=== PATIENT | male | born 1970 | race Caucasian/White ===

== ENCOUNTER → 2018-04-13 13:58 | Outpatient (CLI) | payer MEDICAID, SELFPAY ==
[2018-04-13 14:01] LABS: Adenovirus F 40/41, stool Not Detected (NotDetected); Astrovirus Not Detected (NotDetected); Campylobacter Not Detected (NotDetected); Clostridium Difficile A/B, PCR Not Detected (NotDetected); Cryptosporidium Not Detected (NotDetected); Cyclospora Cayetanesis Not Detected (NotDetected); Entamoeba histolytica Not Detected (NotDetected); Enteroaggregative E coli Not Detected (NotDetected); Enteropathogenic E coli Not Detected (NotDetected); Enterotoxigenic E coli Not Detected (NotDetected); Giardia lamblia Not Detected (NotDetected); Norovirus Not Detected (NotDetected); Plesimonas Shigalloides, PCR Not Detected (NotDetected); Rotavirus A Not Detected (NotDetected); Salmonella, PCR Not Detected (NotDetected); Sapovirus Not Detected (NotDetected); Shiga-like toxin E coli Not Detected (NotDetected); Shigella Enterovasive E coli Not Detected (NotDetected); Vibrio Cholerae Not Detected (NotDetected); Vibrio, PCR Not Detected (NotDetected); Yersinia Entercolitica, PCR Not Detected (NotDetected)
== END ==
PROVIDERS: Visit Provider Nurse Practitioner Family
DX: R19.7 Diarrhea, unspecified (principal)
CPT/HCPCS: 87507

== ENCOUNTER → 2018-05-11 07:41 | Outpatient (CLI) | payer MEDICAID, SELFPAY ==
--- NOTE | 2018-05-11 07:44 | US_ITS ---
US abdomen limited History:Right upper quadrant pain Ordering Physician:Kayleen Kong Patient Age: 47 years Comparison:None Findings:There is limited technically due to patient body habitus. Pancreas:Poorly demonstrated Liver:There is diffuse increased echogenicity of the liver consistent with hepatic steatosis. Right Kidney:Unremarkable. Normal size and echogenicity. No hydronephrosis Gallbladder:No obvious stones. Common bile duct is normal at 5 mm. No pericholecystic fluid. There is some layering sludge in the gallbladder. Impression: Limited exam, layering sludge in the gallbladder. No shadowing stones Fatty liver
== END ==
PROVIDERS: PCP Nurse Practitioner Family; Visit Provider Nurse Practitioner Family
DX: R10.11 Right upper quadrant pain (principal)
CPT/HCPCS: 76705

== ENCOUNTER → 2018-07-24 17:37 | Outpatient (CLI) | payer MEDICAID, SELFPAY ==
[2018-07-28 18:06] LABS: Specimen Type Comment: (.)
== END ==
PROVIDERS: Visit Provider Urology
DX: N20.0 Calculus of kidney (principal)
CPT/HCPCS: 82370

== ENCOUNTER 2018-09-21 09:30 | Outpatient (RCR) | payer MEDICAID, SELFPAY ==
--- NOTE | 2018-08-20 09:49 | HMH.RHREAS ---
Rehab Reassessment Rehab OP Re-assessment Start: 08/20/18 08:47 Freq: Status: Active Protocol: Document 08/20/18 08:47 RMSTEPHANEL (Rec: 08/20/18 09:49 [email or web address] [id number]) Electronically Signed By Pooja David OT 08/20/18 08:47 Rehab Re-assessment Subjective Subjective I am still having pain with it. Objective Objective Notes Pt continues to be seen twice a week in order to address left shoulder deficits. Pt engages in AROM/AAROM/ Strengthening exercises at left shoulder. Pt also receives modalities such as e- stim and ice to decrease pain/ inflammation. Assessment Progress Assessment Slower Than Expected Assessment Notes Pt does demonstrates some improvement in motion and strength since initial evaluation. However, progress has been slow. Pt continues to complain of pain daily at the shoulder and increased soreness since beginning therapy. Pt feels he is 50% better since beginning therapy . Today pt reports his pain as a 3/10. Current AROM at L shoulder Flex: 132 degrees Abd: 155 degrees ER: 56 degrees IR: 40 degrees Current MMT L shoulder Flex: 4 Abd: 4 ER: 4 IR: 4 Patient goals met For now, pt has not met any STG or LTG Goals Not Met STG and LTG Revised Goals AROM L Shoulder Goals Flex: 165 degrees Abd: 170 degrees ER: 65 degrees IR: 65 degrees MMT Goals L shoulder Flex: 5 Abd: 5 ER: 5 IR: 5 Pain: 0/10 Plan Plan Continue with OT plan of care at this time.
== END 2018-09-21 09:35 | disposition home or self-care (01) ==
LOC: OT 09:30
PROVIDERS: Visit Provider Orthopaedic Surgery
DX: M25.512 Pain in left shoulder (principal)
CPT/HCPCS: 97014; 97110; 97164; 97166; G0283

== ENCOUNTER → 2019-01-15 13:15 | Outpatient (CLI) | payer OTHER, SELFPAY ==
--- NOTE | 2019-01-15 13:16 | CT_ITS ---
PROCEDURE: CT ABDOMEN PELVIS WO CON CLINICAL INDICATION: kidney stone Right flank pain COMPARISON: ABDPEL CT abdomen pelvis wo con from 07/23/2018 TECHNIQUE: Axial images obtained with sagittal and coronal reformats. All CT scans at the facility use one or more dose reduction, viz: automated exposure control, ma/kV adjustment per patient size (including targeted exams where dose is matched to indication, i.e. head), or iterative reconstruction technique. FINDINGS: LOWER THORAX: No acute finding ABDOMEN & PELVIS: The liver, spleen, adrenal glands, pancreas, and gallbladder have an unremarkable appearance. Hepatic steatosis. There is a 4 mm nonobstructing stone in the mid polar region of the right kidney and a 3 mm stone in the lower pole of the right kidney. No ureteral calculi. No hydronephrosis. Unremarkable appendix. There is diverticulosis of the descending colon but no evidence of diverticulitis. No intestinal obstruction or free air. There is a small umbilical hernia which contains fat. There is dense calcification of the vas as a deferens. Urinary bladder has an unremarkable appearance. No acute bony anomalies. IMPRESSION: 1. Right nephrolithiasis. No ureteral calculi. No hydronephrosis 2. Fatty liver. 3. Small umbilical hernia containing fat Dictated by: Tano Frye MD 01/16/2019 06:33 Electronically signed by Tano Frye MD in [place] 01/16/2019 06:33
== END ==
PROVIDERS: PCP Nurse Practitioner Family; Visit Provider Urology
DX: N20.0 Calculus of kidney (principal)
CPT/HCPCS: 74176

== ENCOUNTER 2019-10-29 13:01 | Emergency (ER) | payer OTHER, SELFPAY ==
[2019-10-29 13:27] VITALS: BP 157/78; PULSE 56; RESP 14; TEMP 36.9; O2SAT 97; BMI 45.5
--- NOTE | 2019-10-29 13:30 | HMH.EDUTC ---
[facility] [place] Clinical Impression: Abdominal discomfort Disposition: Still a Patient Condition on Discharge: Good Referrals: Kayleen Kong APRN [Primary Care Provider] - Time of Disposition: 13:45 Medical Decision Making - Trey Inquiry Pt receiving controlled substance: No Trey was queried for this patient: No Vital Signs: 10/29/19 13:27 Temperature 98.4 F Temperature Source Oral Pulse Rate [Right Brachial] 56 L Respiratory Rate 14 Blood Pressure [Right Arm] 157/78 H Blood Pressure Mean [Right Arm] 104 Blood Pressure Source [Right Arm] Automatic Cuff Blood Pressure Position [Right Arm] Sitting 02 Sat by Pulse Oximetry 97 Oxygen Delivery Method Room Air Medical Decision Narrative: Discussed symptoms with patient and recommended transfer to ED for further testing and evaluation due to symptoms and swelling in abdomen Called ED spoke with Nikki KHALIL and patient moved to ER room 9 [facility] [place] - General Stated complaint: herina pain Time Seen by Provider: 10/29/19 13:31 Mode of Arrival: Ambulatory Source of Information: Patient Limitations: No Limitations Description of Symptoms (Recalled from Triage Doc. by RN): PATIENT WAS WRESTLING WITH HIS SON A FEW DAYS AGO WHEN HE FELT SOMETHING RIP IN HIS ABDOMEN. SINCE THEN HE HAS BEEN HAVING INCREASED PAIN AND DIARRHEA, ESPECIALLY AFTER HE EATS HEENT Symptoms (Recalled from RN notes): No Resp Symptoms (Recalled from RN notes): No Skin Symptoms (Recalled from RN notes): No MS Symptoms (Recalled from RN notes): No Functional Status (Recalled from RN notes): WNL - History of Present Illness Provider Complaint: Patient states that he has had an umbilical hernia that normally he is able to push back in States that a couple days ago he was wrestling with his child when he felt a tearing sensation in his umbilical area and the hernia popped out and looked a little bluish and had extreme burning like pain in his mid abdomnen around his umbilical area States that ever since he has been having swelling in his right abdomen area and pain/burning in his mid abdominal area after he eats and has been unable to eat States that also he is concerned because now he is also having diarrhea and unable to get the hernia to push back in States that he was at work earlier and started having discomfort and they told him he needed to come in and get checked - Related Data Home Medications Medication Instructions Recorded Confirmed Sitagliptin Phos/Metformin HCl 1 each PO DAILY 12/19/17 04/24/19 [Janumet Xr 50-1,000 mg Tablet] Atorvastatin Calcium [Lipitor 20mg 20 mg PO HS 01/12/19 04/24/19 Tab] allopurinoL [Allopurinol 300mg 300 mg PO DAILY 01/12/19 04/24/19 tablet] Amoxicillin [Amoxicillin 875MG 875 mg PO BID 04/24/19 04/24/19 Tab] Levothyroxine Sodium 100 mcg PO DAILY 04/24/19 04/24/19 [Levothyroxine 100mcg (0.1MG) Tab] Ondansetron [Zofran 4mg ODT] 4 mg PO NEEDED PRN 04/24/19 04/24/19 Previous Rx's Medication Instructions Recorded Doxycycline Monohydrate 100 mg PO BID 7 Days #14 tab 04/24/19 [Doxycycline Wheeler 100mg Tab] Allergies Allergy/AdvReac Type Severity Reaction Status Date / Time amoxicillin Allergy Verified 04/24/19 22:09 ondansetron [From Zofran] Allergy Verified 04/24/19 22:09 - Worker's Comp Is this a Worker's Comp case?: No [facility] History - Hepatitis A Screen Drug use history?: No High risk sexual behaviors?: No History of sexually transmitted infection?: No Currently employed?: No Childcare worker?: No Do you have indoor plumbing?: Yes Do you have electricity?: Yes Attestation statement:: This patient has been screened for Hepatitis A risk factors. I have reviewed the patient's past medical history: Yes Medical History: Reports:: Diabetes Mellitus Type 2, Hyperlipidemia, Hypertension Denies:: Diabetes Mellitus Type 1, Gastrointestinal Bleed, Renal Disease, Ulcer Other Medical History
[2019-10-29 13:34] VITALS: BP 155/91; PULSE 69; RESP 18; TEMP 36.7; O2SAT 99; BMI 45.5
[2019-10-29 14:06] VITALS: BP 127/69; PULSE 59; RESP 18; TEMP 36.7; O2SAT 99
== END 2019-10-29 14:07 | disposition home or self-care (01) ==
LOC: UTC 13:07 → ER 13:34
PROVIDERS: Emergency Provider Emergency Medicine; PCP Nurse Practitioner Family
DX: R10.13 Epigastric pain (principal); E11.9 Type 2 diabetes mellitus without complications; E78.5 Hyperlipidemia, unspecified; I10 Essential (primary) hypertension; E03.9 Hypothyroidism, unspecified; Z79.899 Other long term (current) drug therapy; Z79.84 Long term (current) use of oral hypoglycemic drugs
CPT/HCPCS: 99281

== ENCOUNTER → 2019-11-12 07:33 | Outpatient (CLI) | payer OTHER, SELFPAY ==
[2019-11-12 08:43] LABS: Blood Urea Nitrogen 28 mg/dl (9-20); Estimated Glomerular Filt Rate 72 ml/min (>60); GFR (African American) 87 ML/MIN (>60)
== END ==
PROVIDERS: Visit Provider Surgery
DX: Z01.818 Encounter for other preprocedural examination (principal)
CPT/HCPCS: 36415; 82565; 84520

== ENCOUNTER → 2019-11-15 09:16 | Outpatient (CLI) | payer OTHER, SELFPAY ==
--- NOTE | 2019-11-15 09:21 | CT_ITS ---
PROCEDURE: CT ABDOMEN W CON CLINICAL HISTORY: abdomial heria umbilical hernia pain/burning around umbilical area started 2 weeks ago redicat, 75ml optiray 350 prior 01/15/19 COMPARISON: CT CT ABDOMEN PELVIS WO CON from 01/15/2019 TECHNIQUE: Axial images obtained with sagittal and coronal reformats. All CT scans at the facility use one or more dose reduction, viz: automated exposure control, ma/kV adjustment per patient size (including targeted exams where dose is matched to indication, i.e. head), or iterative reconstruction technique. FINDINGS: There are mild atelectatic changes in the lung bases. The liver and gallbladder have an unremarkable appearance. There is splenomegaly at 15 cm. Adrenal glands and pancreas are unremarkable. Cortical lobulation is noted involving the kidneys without significant cortical thinning. A stone is present in the mid polar region of the right kidney at 3 mm. No ureteral calculi. No hydronephrosis. Unremarkable appendix. No intestinal obstruction or free air. There is an umbilical hernia which contains fat which has a similar appearance compared to 01/15/2019. The orifice of the hernia measures 16 mm. There is some minimal infiltration of the peritoneal fat within the abdomen deep to the hernia. No acute bony findings. IMPRESSION: Overall no significant change in the umbilical hernia which contains fat. There is very minimal infiltration of the mesenteric fat just deep to the hernia which is of questionable clinical significance. Nonobstructing right nephrolithiasis Dictated by: Tano Frye MD 11/16/2019 11:02 Tano Frye MD in [place] 11/16/2019 11:02
== END ==
PROVIDERS: PCP Nurse Practitioner Family; Visit Provider Surgery
DX: R10.9 Unspecified abdominal pain (principal); K46.9 Unspecified abdominal hernia without obstruction or gangrene
CPT/HCPCS: 74160; Q9967

== ENCOUNTER → 2019-11-26 09:23 | Outpatient (CLI) | payer OTHER, SELFPAY ==
--- NOTE | 2019-11-26 09:29 | US_ITS ---
PROCEDURE: US GALLBLADDER CLINICAL INDICATION: RUQ pain COMPARISON: CT CT ABDOMEN W CON from 11/15/2019 FINDINGS: Pancreas: Unremarkable/Not well seen Liver: Unremarkable. There is appropriate direction of blood flow within a non dilated portal vein. Right kidney: There is some cortical scarring of the right kidney. There is a 2 x 1.3 cm hypoechoic area in the upper pole of the right kidney probably related to artifact from the cortical scarring. No nodule evident on recent CT scan of 11/15/2019. Gallbladder: No stones are evident. There is no gallbladder wall thickening. Common duct is normal in diameter. IMPRESSION: Unremarkable gallbladder ultrasound. Cortical scarring of the right kidney with questionable nodule in the upper pole probably artifactual in nature secondary to the there lying scarring Dictated by: Tano Frye MD 11/26/2019 19:34 Tano Frye MD in [place] 11/26/2019 19:34
== END ==
PROVIDERS: PCP Nurse Practitioner Family; Visit Provider Surgery
DX: R10.11 Right upper quadrant pain (principal)
CPT/HCPCS: 76705

== ENCOUNTER → 2019-12-09 08:46 | Outpatient (POV) | payer OTHER, SELFPAY | PROVIDERS: Visit Provider Nurse Practitioner Family | DX: Z00.00 Encounter for general adult medical examination without abnormal findings (principal) ==

== ENCOUNTER → 2020-01-13 07:35 | Outpatient (CLI) | payer OTHER, SELFPAY ==
[2020-01-13 08:08] LABS: Basophils # 0.1 K/mm3 (0-0.2); Basophils % 0.8 % (0.1-2.0); Eosinophils # 0.2 K/mm3 (0.0-0.4); Eosinophils % 3.3 % (0.1-12.0); Hemoglobin 17.2 g/dL (14.1-18.0); Lymphocytes # 2.1 K/mm3 (0.7-4.5); Mean Corpuscular HGB Conc 33.7 g/dL (31.8-35.4); Mean Corpuscular Hemoglobin 32.2 pg (27.0-31.2); Mean Corpuscular Volume 95.7 fl (80-94); Mean Platelet Volume 7.8 fl (7.4-10.4); Monocytes # 0.4 K/mm3 (0.1-1.0); Monocytes % 5.7 % (1.7-9.3); Neutrophils # 4.6 K/mm3 (1.8-7.8); Neutrophils % 62.2 % (37.0-80.0); Platelet Count 221 K/mm3 (142-424); Red Blood Count 5.33 M/mm3 (4.60-6.20); Red Cell Distribution Width 14.2 % (11.5-17.5); White Blood Count 7.4 K/mm3 (4.8-10.8)
[2020-01-13 08:15] LABS: Chloride 102 mmol/L (98-107); Potassium 4.7 mmoL/L (3.5-5.1); Sodium 142 mmol/L (136-145)
[2020-01-13 08:18] LABS: Blood Urea Nitrogen 20 mg/dl (9-20); Estimated Glomerular Filt Rate 80 ml/min (>60); GFR (African American) 97 ML/MIN (>60)
[2020-01-13 08:19] LABS: Anion Gap 13.7 mEq/L (5-15); Calcium 9.7 mg/dl (8.4-10.2); Carbon Dioxide 31 mmol/L (22.0-30.0); Glucose 120 mg/dl (74-100)
[2020-01-13 09:11] LABS: Coronavirus 19 IgG Antibody Negative (Negative); Coronavirus 19 IgM Antibody Negative (Negative)
== END ==
PROVIDERS: Visit Provider Surgery
DX: Z01.818 Encounter for other preprocedural examination (principal); K46.9 Unspecified abdominal hernia without obstruction or gangrene
CPT/HCPCS: 36415; 80048; 85025; 86328

== ENCOUNTER 2020-01-15 08:07 | Day surgery (SDC) | payer OTHER, SELFPAY ==
[2020-01-13 09:05] VITALS: BMI 45.1
[2020-01-15] VITALS (16 sets, daily range): BP systolic 125–164; BP diastolic 70–94; PULSE 61–88; RESP 12–20; TEMP 36.4–43; O2SAT 92–98
[2020-01-15 08:44] LABS: POC Glucose,Bedside 104 (70-110)
--- NOTE | 2020-01-15 08:51 | P.PN_ITS ---
[facility] Anesthesia Checklist - Patient Identification Patient Identification: Arm Band - Structural Data Admitted From: Home Planned Operative Procedure/s: Laparoscopic Umbilical Hernia Repair Consent for Planned Operative Procedure(s) Verified: Yes Verified Documents: Surgical Consent, History and Physical - NPO Status Verified Time NPO: 00:00 - Additional verifications Anesthesia Reactions: No Hx Blood Transfusions: No Blood Transfusion Reaction: No - Airway Assessment C-Spine Mobility Assessed: Yes (mp2) TMJ Mobility Assessed: Yes Dentition: Good Dentition - Neurological Assessment Level of Consciousness: Awake, Alert - Anesthesia Plan Anesthesia Risk discussed: Yes Anesthesia Plan: Verified ASA Class: III Anesthesia Type: General [facility] History I have reviewed the patient's past medical history: Yes Medical History: Reports:: Diabetes Mellitus Type 2, Hyperlipidemia, Lung Disease (JOHANA-cpap hs) Denies:: Cancer, Diabetes Mellitus Type 1, Gastrointestinal Bleed, Internal Pacemaker, MRSA, Renal Disease, Seizures, Ulcer *Have you ever received a pneumonia vaccine?: No *Have you received a flu vaccine this season?: Yes Other Medical History: Reports: Hypothyroidism, Other. Denies: Blood Transfusion Reaction Anesthesia experience/problems:: nac Other Surgeries: Yes: Other. No: Pacemaker Amputation: No Fractures: No - *Social History Last grade of school completed: Advanced degree Smoking Status: Never smoker Alcohol Intake: never Alcohol Intake Frequency:: a few times a week Substance Use Type: denies use *Occupational Status:: employed Housing: house Household Members: spouse *Travel in the last 8 weeks: None Family Hx:: Cancer
--- NOTE | 2020-01-15 13:10 | P.OP_ITS ---
Date of procedure: 01/15/20 Pre-op Diagnosis:: Umbilical hernia Post-op Diagnosis:: Same Procedure performed:: Laparoscopic umbilical hernia repair with placement of 4.5 inch Bard ventral light mesh Surgeon:: Bret Alamo MD [employer]ORSE [employer] MANAGER:: Yakov Mcbride Anesthesia: GETManuel Estimated blood loss (mL): 15 Clinical Note:: Patient presents for repair of his umbilical hernia. He had a longstanding history of an umbilical hernia present for many years. However he had developed some recent symptomatology. At the time I saw him initially patient had an obvi ous umbilical hernia which was soft. However, he was also complaining of some right-sided abdominal pain and change in bowel habits with certain food intake. He did undergo CT scan which revealed a fat-containing umbilical hernia with a defect apparently measuring 1.7 cm. Due to his postprandial abdominal symptoms and change in bowel habits I had him undergo an ultrasound of the gallbladder which is negative for gallstones. He did see gastroenterology it was felt that some of his abdominal pain and symptomatology was secondary to change in his diet. He wished to pursue repair. Given the nature of the hernia plan was made for laparoscopy with possibly laparoscopically directed repair versus fully laparoscopic repair. Operative findings:: Patient had approximately a 1.7 cm defect with a large amount of chronically incarcerated omentum. There was some attenuated fascia above this but no defect Operative note:: Patient was taken to the operating room. He was given preoperative intravenous antibiotics. In the operating room he was placed in a supine position. General anesthesia was induced via endotracheal tube. Abdomen was prepped and draped in the standard surgical fashion. Through a left subcostal 5 mm incision optical trocar was carefully inserted. CO2 pneumoperitoneum was achieved to 15 mmHg. Laparoscopic surveillance was carried out. He had what appeared to be appreciable amount of omentum incarcerated through umbilical hernia. Ultimately a 5 mm trocar was inserted in the left lower abdomen right lower abdomen and 11 mm trocar was inserted in the right upper abdomen. With careful traction the omentum was able to be reultimately reduced from the hernia defect. There was a small amount of attachments residual to the peritoneum this was divided with LORRAINE ultrasonic robotic yao. Overall size of the defect measured approximately 1.7 centimeters. The fascia cranially to the defect had some stretch and attenuation but no evidence of any defect. Given the nature of the hernia, in order to have the lowest chance of recurrence, plan was made for fully laparoscopic repair with 4.5 inch Bard ventral light circular mesh. Mesh was inserted into the peritoneal cavity. Through a 1 mm incision at the umbilicus the echo positioning system tubing was brought through the anterior abdominal wall. Balloon positioning system was inflated. Mesh was secured around the periphery with the OPTi fix. The echo balloon positioning system was then removed. Additional operative fix tacks were secured around the periphery with a few more medially to help eliminate any space. Repair appeared adequate. The 11 mm trocar in the right upper abdomen was removed. Fascia was closed at the site with a neoclose device. CO2 pneumoperitoneum was then evacuated. Remainder trochars were removed. Skin incisions were closed with 4- 0 Monocryl in a subcuticular fashion. Steri-Strips and dressings were applied. Condition: stable Disposition: PACU Complications:: None immediately apparent
--- NOTE | 2020-01-15 13:24 | P.PN_ITS ---
[facility] Anesthesia Record Part I Intake, IV Amount: 650 Estimated blood loss (mL): 10 Urine output (mL): 0 Blood Products used (#): none Blood Pressure: 160/90 SaO2: 97 Pulse Rate: 79 Respiratory Rate: 20 Temperature: 98.2 F Patient is:: Drowsy, Nasal O2, Stable Stable to PACU at:: 13:18
[2020-01-15 13:35] LABS: POC Glucose,Bedside 101 (70-110)
--- NOTE | 2020-01-15 14:48 | P.PN_ITS ---
[facility] Anesthesia Record Part II Discharge Time: 13:48 Destination: Surgical Day Care (OP Surgery) PACU nurse assessment reviewed?: Yes Patient Condition:: Good Anesthesia Complications:: None Swallowing reflex intact?: Yes Cyanosis?: No Blood Pressure: 148/90 Pulse Rate: 67 Temperature: 97.6 F Mental Status: Alert & Oriented Pain level:: 3 Nausea and/or vomitting:: None Intake, IV Amount: 25
--- NOTE | 2020-01-15 16:09 | SUR.PHASEI ---
Patient into PACU at 1318. BOBBY faxed PACU med orders to pharmacy by 1325. [employer] pulled toradol 30mg for IM injection (per written and faxed PACU orders on purple sheet). Orders not in [facility] at 1329. PACU med orders in [facility] at 1340. Patient received toradol 30mg IM at 1340. Dilaudid pulled from [facility] at 1333, order in at 1340, patient received first dose of dilaudid 0.5mg IVP at 1345.
== END 2020-01-15 14:50 | disposition home or self-care (01) ==
LOC: OR 08:09
PROVIDERS: PCP Nurse Practitioner Family; Visit Provider Surgery
PROC: 0WQF4ZZ Repair Abdominal Wall, Percutaneous Endoscopic Approach (ICD-10-PCS; CPT 49652; principal; 2020-01-15 09:45)
DX: K42.9 Umbilical hernia without obstruction or gangrene (principal); E11.9 Type 2 diabetes mellitus without complications; E78.5 Hyperlipidemia, unspecified; G47.33 Obstructive sleep apnea (adult) (pediatric); E03.9 Hypothyroidism, unspecified; Z79.899 Other long term (current) drug therapy; Z88.1 Allergy status to other antibiotic agents
CPT/HCPCS: 49652; 82962; 96374; C1781; J2405; J2710

== ENCOUNTER → 2020-06-25 09:07 | Outpatient (CLI) | payer OTHER, SELFPAY | PROVIDERS: PCP Nurse Practitioner Family; Visit Provider Family Medicine | DX: Z20.822 Contact with and (suspected) exposure to COVID-19 (principal) | CPT/HCPCS: U0003 ==

== ENCOUNTER → 2020-08-13 11:40 | Outpatient (CLI) | payer OTHER, SELFPAY ==
[2020-08-13 12:40] LABS: Basophils # 0.1 K/mm3 (0-0.2); Basophils % 0.7 % (0.1-2.0); Eosinophils # 0.2 K/mm3 (0.0-0.4); Eosinophils % 1.9 % (0.1-12.0); Hematocrit 47.6 % (42.0-52.0); Hemoglobin 16.2 g/dL (14.1-18.0); Lymphocytes % 23.5 % (10-50); Mean Corpuscular Hemoglobin 31.8 pg (27.0-31.2); Mean Corpuscular Volume 93.4 fl (80-94); Mean Platelet Volume 8.8 fl (7.4-10.4); Monocytes # 0.7 K/mm3 (0.1-1.0); Neutrophils # 5.7 K/mm3 (1.8-7.8); Neutrophils % 65.9 % (37.0-80.0); Platelet Count 222 K/mm3 (142-424); Red Blood Count 5.09 M/mm3 (4.60-6.20); Red Cell Distribution Width 13.8 % (11.5-17.5); White Blood Count 8.7 K/mm3 (4.8-10.8)
[2020-08-13 13:40] LABS: Chloride 102 mmol/L (98-107); Potassium 4.7 mmoL/L (3.5-5.1); Sodium 138 mmol/L (136-145)
[2020-08-13 13:43] LABS: Alanine Aminotransferase 31 U/L (12-78); Albumin Level 4.5 g/dl (3.5-5.0); Albumin/Globulin Ratio 1.7 (1.1-1.8); Alkaline Phosphatase 78 U/L (38-126); Anion Gap 11.7 mEq/L (5-15); Aspartate Amino Transferase 33 U/L (17-59); Bilirubin,Total 0.4 mg/dl (0.2-1.3); Blood Urea Nitrogen 13 mg/dl (9-20); Carbon Dioxide 29 mmol/L (22.0-30.0); Estimated Glomerular Filt Rate 104 ml/min (>60); GFR (African American) 125 ML/MIN (>60); Globulin 2.7 g/dL (1.3-3.2); Total Protein,Serum 7.2 g/dl (6.3-8.2)
[2020-08-13 13:44] LABS: Calcium 9.2 mg/dl (8.4-10.2); Glucose 94 mg/dl (74-100)
== END ==
PROVIDERS: Visit Provider Nurse Practitioner Family
DX: R10.9 Unspecified abdominal pain (principal); N21.0 Calculus in bladder
CPT/HCPCS: 36415; 80053; 85025

== ENCOUNTER → 2020-08-19 06:16 | Outpatient (CLI) | payer OTHER, SELFPAY ==
--- NOTE | 2020-08-19 06:26 | CT_ITS ---
PROCEDURE: CT ABDOMEN PELVIS WO CON CLINICAL INDICATION: RT FLANK PAIN COMPARISON: CT CT ABDOMEN W CON from 11/15/2019 TECHNIQUE: Axial images obtained with sagittal and coronal reformats. All CT scans at the facility use one or more dose reduction, viz: automated exposure control, ma/kV adjustment per patient size (including targeted exams where dose is matched to indication, i.e. head), or iterative reconstruction technique. FINDINGS: LOWER THORAX: Mild scarring or atelectatic change in the right middle lobe and lingula. There is some mild coronary artery calcification noted. ABDOMEN & PELVIS: Fatty liver. Mild splenomegaly at 15 cm. The adrenal glands, gallbladder, and pancreas have an unremarkable unenhanced appearance. There are several bilateral renal calculi measuring up to 5 mm in the mid polar region on the right and 3 mm in the lower pole on the left. No ureteral calculi are evident. No hydronephrosis. No calculi evident within the urinary bladder. No intestinal obstruction or free air. No evidence of appendicitis. No evidence of diverticulitis. There are dense vas deferens calcifications. No acute bony findings. There is a round 3.7 by 3.6 cm collection in the umbilical area. This is in the previous noted area of an umbilical hernia containing fluid density. There was reported previous umbilical surgery. This is consistent with a small postoperative seroma. IMPRESSION: 1. Bilateral nephrolithiasis. No ureteral calculi. 2. Postoperative seroma and the umbilical area. Dictated by: Tano Frye MD 08/19/2020 15:31 Tano Frye MD in [place] 08/19/2020 15:31
== END ==
PROVIDERS: PCP Nurse Practitioner Family; Visit Provider Nurse Practitioner Family
DX: R10.9 Unspecified abdominal pain (principal); N21.0 Calculus in bladder
CPT/HCPCS: 74176

== ENCOUNTER → 2021-10-07 14:58 | Outpatient (CLI) | payer OTHER, SELFPAY ==
--- NOTE | 2021-10-07 15:04 | XR_ITS ---
FINAL REPORT CLINICAL HISTORY: LT SIDED THORACIC BACK PAIN FINDINGS: AP, lateral, and swimmer''s views of the thoracic spine were obtained. There is no prior exam for comparison. There is no acute fracture or malalignment. Vertebral body height is preserved. There is multilevel degenerative disc disease. Paraspinal soft tissues are within normal limits. IMPRESSION: No acute osseous abnormality of the thoracic spine. Reviewed, Interpreted and Dictated by Lamar Cao MD Transcribed by Javi Bustillo Authenticated and [facility]
== END ==
PROVIDERS: PCP Nurse Practitioner Family; Visit Provider Nurse Practitioner Family
DX: M54.6 Pain in thoracic spine (principal)
CPT/HCPCS: 72072

== ENCOUNTER → 2022-05-25 14:58 | Outpatient (CLI) | payer OTHER, SELFPAY ==
--- NOTE | 2022-05-25 15:02 | XR_ITS ---
FINAL REPORT CLINICAL HISTORY: LT SIDED LOW BACK PAIN W/SCIATICA FINDINGS: LUMBAR SPINE Five views demonstrate no acute fracture. There are mild degenerative changes with osteophytes. There is no malalignment. IMPRESSION: Mild degenerative changes. Reviewed, Interpreted and Dictated by Bret Blount III, MD Transcribed by Nola Dupree Authenticated and [facility]
== END ==
PROVIDERS: PCP Nurse Practitioner Family; Visit Provider Nurse Practitioner Family
DX: M54.42 Lumbago with sciatica, left side (principal)
CPT/HCPCS: 72110

== ENCOUNTER → 2022-08-17 14:35 | Outpatient (CLI) | payer OTHER, SELFPAY ==
--- NOTE | 2022-08-17 15:30 | PC.NURSE ---
PRE and POST Spirometry completed without incident. Albuterol 0.083% given via HHN, per protocol, Pt tolerated tx well.
== END ==
PROVIDERS: PCP Nurse Practitioner Family; Visit Provider Nurse Practitioner Family
DX: Z01.818 Encounter for other preprocedural examination (principal)
CPT/HCPCS: 94060

== ENCOUNTER → 2022-08-22 06:59 | Outpatient (CLI) | payer OTHER, SELFPAY ==
--- NOTE | 2022-08-22 07:35 | XR_ITS ---
FINAL REPORT CLINICAL HISTORY: OBESITY FINDINGS: 2 views of the chest were obtained . The heart is normal in size. The mediastinum is within normal limits. The lungs are clear. There is no pneumothorax. Osseous structures are unremarkable. IMPRESSION: No acute cardiopulmonary process. Reviewed, Interpreted and Dictated by Bret Blount III, MD Transcribed by Nataly Romano Authenticated and [facility]
[2022-08-22 08:22] LABS: Basophils % 0.6 % (0.1-2.0); Eosinophils # 0.4 K/mm3 (0.0-0.4); Hematocrit 47.4 % (42.0-52.0); Hemoglobin 15.3 g/dL (14.1-18.0); Lymphocytes # 1.8 K/mm3 (0.7-4.5); Lymphocytes % 23.3 % (10-50); Mean Corpuscular HGB Conc 32.4 g/dL (31.8-35.4); Mean Corpuscular Hemoglobin 31.1 pg (27.0-31.2); Mean Corpuscular Volume 96.1 fl (80-94); Mean Platelet Volume 8.5 fl (7.4-10.4); Monocytes # 0.5 K/mm3 (0.1-1.0); Monocytes % 6.9 % (1.7-9.3); Neutrophils % 64.2 % (37.0-80.0); Platelet Count 186 K/mm3 (142-424); Red Blood Count 4.93 M/mm3 (4.60-6.20); Red Cell Distribution Width 13.6 % (11.5-17.5); White Blood Count 7.8 K/mm3 (4.8-10.8)
[2022-08-22 08:39] LABS: Hemoglobin A1C 8.6 % (4.0-6.0)
[2022-08-22 08:44] LABS: Alanine Aminotransferase 59 U/L (12-78); Albumin Level 4.3 g/dl (3.5-5.0); Albumin/Globulin Ratio 1.5 (1.1-1.8); Alkaline Phosphatase 106 U/L (38-126); Anion Gap 15.7 mEq/L (5-15); Aspartate Amino Transferase 61 U/L (17-59); Bilirubin,Total 0.5 mg/dl (0.2-1.3); Blood Urea Nitrogen 15 mg/dl (9-20); Calcium 9.3 mg/dl (8.4-10.2); Carbon Dioxide 28 mmol/L (22.0-30.0); Chloride 99 mmol/L (98-107); Chol/HDL Ratio 4.9 (1-3.5); Cholesterol 195 mg/dl (140-200); Estimated Glomerular Filt Rate 120 ml/min (>60); GFR (African American) 145 ML/MIN (>60); Globulin 2.8 g/dL (1.3-3.2); Glucose 202 mg/dl (74-100); HDL Cholesterol 40 mg/dl (40-60); Iron 98 ug/dL (49-181); Potassium 4.7 mmoL/L (3.5-5.1); Sodium 138 mmol/L (136-145); Total Protein,Serum 7.1 g/dl (6.3-8.2); Triglycerides 348 mg/dl (30-150); VLDL Cholesterol 70 mg/dL (0-40)
[2022-08-22 08:52] LABS: Total Iron Binding Capacity 313 ug/dL (261-462)
[2022-08-22 09:05] LABS: Intact Parathyroid Hormone 54.4 pg/mL (7.5-53.5)
[2022-08-22 09:17] LABS: Thyroid Stimulating Hormone 2.16 uIU/mL (0.465-4.68)
[2022-08-22 09:19] LABS: Ferritin 212 ng/ml (17.9-464)
[2022-08-22 10:00] LABS: Folate > 20.00 ng/mL
[2022-08-25 00:12] LABS: Vitamin A 77.5 ug/dL (20.1-62.0)
[2022-08-25 15:20] LABS: Vitamin E Alpha Tocopherol 18.9 mg/L (7.0-25.1); Vitamin E Gamma Tocopherol 2.4 mg/L (0.5-5.5)
[2022-09-28 00:11] LABS: Methylmalonic Acid 100 nmol/L (0-378)
== END ==
PROVIDERS: PCP Nurse Practitioner Family; Visit Provider Physician Assistant
DX: E66.9 Obesity, unspecified (principal); Z68.42 Body mass index [BMI] 45.0-49.9, adult
CPT/HCPCS: 36415; 71046; 80053; 80061; 82306; 82728; 82746; 83036; 83540; 83550; 83921; 83970; 84425; 84443; 84446; 84590; 85025

== ENCOUNTER → 2022-10-14 12:09 | Outpatient (CLI) | payer OTHER, SELFPAY ==
--- NOTE | 2022-10-14 12:09 | NM_ITS ---
APPROVED REPORT Exam: Nuclear Stress Test Indication: OBESITY, FM HX, SOB Patient Location: Outpatient Stress Tech: Stacie Moss IN Tech:Santa CaldwellRANJEET RT(R)(N) Ht: 5 ft 6 in Wt: 310 lbs Bra Size: 1.02 HR: 84 bpm BP: 134/73 mmHg BSA: 2.41 m2 Rhythm: NSR TID: 1.02 BMI: 50.0 History: OBESITY, FM HX, SO Procedure: Patient exercised on Messi protocol 6:45 minutes and sec, resting heart rate 84 bpm, resting blood pressure 134/73 mmHg, with exercise maximum heart rate achived was 162 bpm which is 95 % of the maximum predicted heart rate and blood pressure was 224/80 mmHg. Test was stopped due to FATIGUE. Patient has poor exercise capacity, achieved 7.0 METs of workload on treadmill, the blood pressure response to exercise was exaggerated. Cardiac Stress and Resting SPECT Images: Cardiac Stress and Resting SPECT images were obtained using technetium 99m Myoview 32.8 mCi stress and 10.77 mCi at rest. This was a technically difficult study due to body habitus and overlying soft tissue overlapping with the cardiac borders. This may affect the diagnostic interpretation of the study findings. Resting and stress imaging and supine and prone positions demonstrate a large sized, moderate, partially reversible perfusion defect in the inferior and inferoapical LV khalil. With prone imaging, the perfusion defect is less pronounced, but is still present in the distal inferior and inferoapical regions, suggestive of true perfusion defect. Gated imaging demonstrates normal global LV systolic function. There is mild hypokinesis in the distal inferior and inferoapical LV khalil. LVEF is calculated at 59%. Conclusion: This was a technically difficult study due to body habitus and overlying soft tissue overlapping with the cardiac borders. This may affect the diagnostic interpretation of the study findings. Resting and stress imaging and supine and prone positions demonstrate a large sized, moderate, partially reversible perfusion defect in the inferior and inferoapical LV khalil. Findings are suggestive of partial reversible ischemia with history of prior infarct. Gated imaging demonstrates normal global LV systolic function. There is mild hypokinesis in the distal inferior and inferoapical LV khalil. LVEF is calculated at 59%. Electronically signed by : Leona Keenan, 10/16/2022 19:16:34
--- NOTE | 2022-10-14 14:20 | CA_ITS ---
APPROVED REPORT Exam: Exercise Treadmill Technologist: Stacie Caputo, Ht: 5 ft 6 in Wt: 310 lbs BSA: 2.41 m2 HR: 80 bpm BP: 141/74 mmHg Rhythm: NSR Medical History Medications: Levothyroxine,,,,, Allopurinol,,,,, Atorvastatin,,,,, Sitagliptin phos-metformin,,,,, Stress Test Details Test: Messi HR Resting HR: 84 bpm Max Heart Rate (APMHR): 171 bpm Max HR Achieved: 162 bpm Target HR (85% APMHR): 145 bpm % of APMHR: 95 Recovery HR: 97 bpm HR response to stress: Normal HR response to stress BP Resting BP: 134.0/73 mmHg Max BP: 224/80 mmHg Recovery BP: 143.0/73.0 mmHg BP response to stress: Abnormal hypertensive response to stress. ECG Resting ECG: NSR, rightward asix, NS ST-T abn inferiorly Stress ECG: < 1mm upsloping ST depression Arrhythmia: Frequent PVCs, couplets, triplets, NSVT Recovery ECG: Return to baseline within 3 minutes of recovery Recovery Arrhythmia: PVCs Clinical Exercise duration: 06:46 min Highest Stage Achieved: III Exercise capacity: 7.0 METs Overall Exercise Capacity for Age: Poor Stress ECG Conclusion The patient was able to exercise for a total of 6:45 on Messi Protocol. He achieved 7 METS. He has poor exercise capacity compared to age and sex matched peers. He has normal HR, but exaggerated BP, response to exercise Max HR: 162 % of PM: 96% Max BP: 224/80 METs: 7.0 Test stopped due to: SOA Symptoms: Dyspnea, No CP. Arrhythmias/Ectopy: Frequent PVCs, occasional couplet, 1 triplet & one 4 beat NSVT during the final 1:[address]-T Changes: Exaggeration of baseline ST adnormalaties in leads III, aVF with < 1mm of upsloping ST depression Conclusion: Poor exercise capacity. Exaggerated BP response to exercise. ECG stress test demonstrates abnormal findings, possible ischemia present, frequent ectopy. Myoview images reported separately. Test Summary REST . . . . . . . Sitting REST . . . . . . . Standing REST 04:02 0.0 0.0 84 . 134/ 73 . . Stage 1 01:00 10.0 1.7 104 . . . . Stage 1 02:00 10.0 1.7 116 . . . . Stage 1 03:00 10.0 1.7 128 . 194/ 76 . . Stage 2 01:00 12.0 2.5 137 . . . . Stage 2 02:00 12.0 2.5 145 . . . . Stage 2 03:00 12.0 2.5 152 . 224/ 80 . . Stage 3 00:46 14.0 3.4 161 . . . Stop exercise at 06:46 RECOVERY 01:00 0.0 0.0 141 . . . . RECOVERY 02:00 0.0 0.0 123 . . . . RECOVERY 03:00 0.0 0.0 116 . 195/ 81 . . RECOVERY 04:00 0.0 0.0 107 . 195/ 81 . . RECOVERY 05:00 0.0 0.0 102 . 140/ 67 . . RECOVERY 06:00 0.0 0.0 98 . 143/ 73 . . RECOVERY 06:48 0.0 0.0 0 . 143/ 73 . . Electronically signed by : Leona Keenan, 10/16/2022 19:10:56
== END ==
LOC: RAD 12:09
PROVIDERS: PCP Nurse Practitioner Family; Visit Provider Internal Medicine
DX: Z01.810 Encounter for preprocedural cardiovascular examination (principal); I25.10 Atherosclerotic heart disease of native coronary artery without angina pectoris; N28.9 Disorder of kidney and ureter, unspecified; R94.31 Abnormal electrocardiogram [ECG] [EKG]
CPT/HCPCS: 78452; 93017; A9502

== ENCOUNTER 2022-11-07 10:26 | Day surgery (SDC) | payer OTHER, SELFPAY ==
[2022-11-07] VITALS (12 sets, daily range): BP systolic 124–186; BP diastolic 65–104; PULSE 56–77; RESP 16–20; O2SAT 93–99; BMI 49.8
--- NOTE | 2022-11-07 07:12 | IR_ITS ---
APPROVED REPORT Patient Location: Outpatient Bioinformatics Developer: RANJEET Carrillo RT (R) PROCEDURES Left heart catheterization Left ventriculogram Selective coronary angiogram INDICATION Preoperative evaluation, Abnormal Myoview Informed consent was obtained prior to the procedure. COMPLICATIONS None Estimated Blood Loss: Less than 10 mls TECHNIQUE One percent lidocaine used to anesthetize the right anterior aspect of the wrist. The right radial artery was accessed via the Seldinger technique. A 6 Taiwanese sheath was placed in the right radial artery. 2.5 mg of Verapamil, 800 mcg of nitroglycerin, 1mg Lidocaine and 5000 U Heparin were given through the arterial sheath. The papa catheter was also used to perform left heart catheterization, left ventriculogram and selective coronary angiogram. At the end of the procedure the sheath was removed good hemostasis was achieved using Traclet band, patient was transferred to the postop holding area in stable condition. ANGIOGRAPHIC RESULTS The left main artery Normal The left anterior descending artery Has mild proximal mid vessel 10% luminal irregularities The circumflex artery Large and dominant and normal The right coronary artery Vestigial normal The CASEY ventriculogram reveals Normal 65% The left ventricular end-diastolic pressure Elevated at 25 mmHg IMPRESSION Mild nonflow limiting coronary artery disease Normal ejection fraction Elevated LVEDP consistent with diastolic dysfunction secondary to body habitus PLAN 1. Medical management for mild nonflow limiting coronary artery disease 2. Patient is alone acceptable risk to proceed with gastric surgery 3. Gastric bypass surgery will be the definitive treatment for diastolic dysfunction Electronically signed by : Bubba Bolivar MD 11/07/2022 12:02:24
[2022-11-07 11:04] LABS: Basophils # 0.1 K/mm3 (0-0.2); Basophils % 0.7 % (0.1-2.0); Chloride 102 mmol/L (98-107); Eosinophils # 0.3 K/mm3 (0.0-0.4); Eosinophils % 3.7 % (0.1-12.0); Hematocrit 46.7 % (42.0-52.0); Hemoglobin 15.8 g/dL (14.1-18.0); Lymphocytes # 2.2 K/mm3 (0.7-4.5); Lymphocytes % 30.1 % (10-50); Mean Corpuscular HGB Conc 33.8 g/dL (31.8-35.4); Mean Corpuscular Hemoglobin 31.9 pg (27.0-31.2); Mean Corpuscular Volume 94.2 fl (80-94); Mean Platelet Volume 8.5 fl (7.4-10.4); Monocytes # 0.5 K/mm3 (0.1-1.0); Monocytes % 6.6 % (1.7-9.3); Neutrophils # 4.4 K/mm3 (1.8-7.8); Platelet Count 175 K/mm3 (142-424); Potassium 4.1 mmoL/L (3.5-5.1); Red Blood Count 4.95 M/mm3 (4.60-6.20); Red Cell Distribution Width 13.7 % (11.5-17.5); Sodium 140 mmol/L (136-145); White Blood Count 7.5 K/mm3 (4.8-10.8)
[2022-11-07 11:07] LABS: Anion Gap 13.1 mEq/L (5-15); Blood Urea Nitrogen 12 mg/dl (9-20); Carbon Dioxide 29 mmol/L (22.0-30.0); Creatinine Clearance Estimated 101 mL/min (50-200); Estimated Glomerular Filt Rate 103 ml/min (>60); GFR (African American) 124 ML/MIN (>60)
[2022-11-07 11:08] LABS: Calcium 9.7 mg/dl (8.4-10.2); Glucose 174 mg/dl (74-100)
== END 2022-11-07 15:04 | disposition home or self-care (01) ==
PROVIDERS: PCP Nurse Practitioner Family; Visit Provider Internal Medicine
DX: I25.10 Atherosclerotic heart disease of native coronary artery without angina pectoris (principal); R94.31 Abnormal electrocardiogram [ECG] [EKG]; R94.39 Abnormal result of other cardiovascular function study; E11.9 Type 2 diabetes mellitus without complications; Z79.84 Long term (current) use of oral hypoglycemic drugs; Z79.899 Other long term (current) drug therapy
CPT/HCPCS: 80048; 85025; 93458; 99152; C1725; C1760; C1769; J1644; Q9967

== ENCOUNTER 2023-04-27 10:43 | Emergency (ER) | payer OTHER, SELFPAY ==
[2023-04-27 10:45] VITALS: BP 144/75; PULSE 69; RESP 18; TEMP 36.8; O2SAT 98; BMI 36.3
--- NOTE | 2023-04-27 11:01 | PC.NURSE ---
Dr. Roldan at [facility] for pt eval
--- NOTE | 2023-04-27 11:05 | CT_ITS ---
FINAL REPORT CLINICAL HISTORY: RLQ abd pain COMPARISON: 08/19/2020 FINDINGS: Axial CT images of the abdomen and pelvis were obtained without intravenous contrast. Coronal reformatted images were also obtained.This study was performed with techniques to keep radiation doses as low as reasonably achievable (ALARA). Individualized dose reduction techniques using automated exposure control or adjustment of mA and/or kV according to the patient''s size were employed. Abdomen: There is scarring in the left lung base. There are postoperative changes from gastric sleeve. There are multiple small nonobstructing renal stones. There is mild right hydronephrosis secondary to a 6 mm right UPJ stone. The gallbladder is moderately distended with mild wall thickening. No definite gallstones identified. The liver, spleen and pancreas have an unremarkable, unenhanced appearance. There is a cystic mass at the level of the umbilicus in the subcutaneous tissues measuring 3.7 cm and stable from prior. This may represent sebaceous cyst or other cyst. Note is made of calcification of the vas deferens. Pelvis: Images of the pelvis reveal no evidence of ureteral dilation or ureteral stone.No mass or abnormal fluid collection is identified. IMPRESSION: Mild right hydronephrosis secondary to a 6 mm stone at the right UPJ. Small nonobstructing renal stones. Reviewed, Interpreted and Dictated by Bret Blount III, MD Transcribed by Holli Christensen Authenticated and [facility]
--- NOTE | 2023-04-27 11:07 | HMH.EDGENADL ---
Discharge Plan Disposition Patient Disposition: Home, Self-Care Prescriptions Prescriptions: New ibuprofen 800 mg tablet 800 mg PO TID PRN (Reason: pain) 7 Days Qty: 20 0RF hydrocodone-acetaminophen 5-325 mg tablet 1 tab PO Q6H PRN (Reason: pain) 3 Days Qty: 12 0RF tamsulosin [Flomax] 0.4 mg capsule 0.4 mg PO DAILY 7 Days Qty: 7 0RF ondansetron 4 mg tablet,disintegrating 4 mg PO Q6H PRN (Reason: nausea and vomiting) 5 Days Qty: 20 0RF No Action omeprazole 20 mg capsule,delayed release(DR/EC) 20 mg PO DAILY Patient Comments: TAKE 1 CAPSULE BY MOUTH EVERY DAY Ozempic 0.25 mg or 0.5 mg (2 mg/3 mL) pen injector 0.25 mg SQ WEEKLY Patient Comments: INJECT 0.25MG SUBCUTANEOUS ONCE WEEKLY atorvastatin 20 MG tablet 20 mg PO HS Patient Comments: take 1 tablet by mouth once daily allopurinol 300 MG tablet 300 mg PO DAILY levothyroxine 100 MCG tablet 100 mcg PO DAILY sitagliptin phos-metformin 50-1,000 mg tablet, ER multiphase 24 hr 2 tab PO DAILY Hold Instructions: Resume on 11/10/22. Referrals Follow up/Referrals: Santa Dow APRN [Primary Care Provider] - See instructions Johnny Nelson MD [Staff Physician] - See instructions Activity Restrictions/Add. Instructions Additional Instructions/Restrictions: A 6 mm proximal obstructing ureteral stone. This may not pass please return to our emergency department or emergency department with emergent urological coverage if you have refractory symptoms high fevers etc. Please call make an appointment next available with Dr. Johnny Nelson. Clinical Impressions Clinical Impression: Kidney stone on right side Instructions Patient Instructions: DI for Acute Abdominal Pain Discharge ED Provider: Shanti Roldan General Adult HPI General Chief complaint: Abdominal Pain Stated complaint: pain lower right abdomen Time Seen by Provider: 04/27/23 10:59 History of Present Illness HPI narrative: Patient is a 52-year-old male with a history of multiple kidney stones, one requiring surgical intervention presents today with right flank pain which she feels is similar to a kidney stone he had in the past. This happened 1 hour prior to arrival started with some back pain but his abdominal pain started suddenly 1 hour ago. Patient denies any tenderness in his lower abdomen denies any hematuria fevers or chills. No history of abdominal surgeries aside from gastric bypass surgery several years ago which was a sleeve performed at [facility]. Urologic intervention was done in [place] when he lived there but he is now a resident of our community. Related Data Home Medications Medication Instructions Recorded Confirmed allopurinol 300 mg tablet 300 mg PO DAILY GOUT 01/12/19 11/22/22 atorvastatin 20 mg tablet 20 mg PO HS Cholesterol 01/12/19 11/22/22 levothyroxine 100 mcg tablet 100 mcg PO DAILY THYROID 04/24/19 11/22/22 sitagliptin phos 50 mg-metformin 2 tab PO DAILY Diabetes 10/11/22 11/22/22 ER 1,000 mg tablet,extend rel 24h mp omeprazole 20 mg capsule,delayed 20 mg PO DAILY 10/25/22 11/22/22 release semaglutide 0.25 mg or 0.5 mg (2 0.25 mg SQ WEEKLY 10/25/22 11/22/22 mg/3 mL) subcutaneous pen injector ([employer]) Previous Rx's Medication Instructions Recorded hydrocodone 5 mg-acetaminophen 325 1 tab PO Q6H PRN pain 3 days #12 04/27/23 mg tablet tabs ibuprofen 800 mg tablet 800 mg PO TID PRN pain 7 days #20 04/27/23 tabs ondansetron 4 mg disintegrating 4 mg PO Q6H PRN nausea and 04/27/23 tablet vomiting 5 days #20 tabs tamsulosin 0.4 mg capsule (Flomax) 0.4 mg PO DAILY 7 days #7 caps 04/27/23 Allergies Allergy/AdvReac Type Severity Reaction Status Date / Time amoxicillin Allergy Unknown Verified 11/22/22 11:25 allergy reaction ondansetron [From Zofran] Allergy Unknown Verified 11/22/22 11:25 allergy reaction PFSH PFS Disclaimer: The information contained in this section may have been updated after the patient was seen, as this information can be updated by other users. Medical History Abnormal electrocardiogram [ECG] [EKG] Abnormal stress test Coronary artery calcification seen on CAT scan Diabetes Encounter for pre-operative cardiovascular clearance Social History Smoking Status: Never smoker alcohol intake: never substance use type: denies use current occupational status: employed Travel in the last 8 weeks: None household members: spouse housing: house current occupation: auto [employer] current occupational exposures/hazards: No caffeine: Yes ROS Obtained: Yes All systems reviewed & no additional complaints except as documented Physical Exam General General appearance: alert Respiratory Respiratory exam: Present normal lung sounds bilaterally Cardiovascular Cardiovascular exam: Present regular rate Abdominal Exam Abdominal exam: Present soft; Absent distention or tenderness Back Exam Back exam: Absent CVA tenderness (R) or CVA tenderness (L) Neurological Exam Neurological exam: Present alert Medical Decision Making Trey Inquiry Pt receiving controlled substance: No Vital Signs: 04/27/23 10:45 04/27/23 12:00 Temperature 98.2 F Temperature Source Oral Pulse Rate 56 L Pulse Rate [Right Brachial] 69 Respiratory Rate 18 18 Blood Pressure 135/78 Blood Pressure [Right Arm] 144/75 H Blood Pressure Mean 107 Blood Pressure Mean [Right Arm] 98 Blood Pressure Source [Right Arm] Automatic Cuff Blood Pressure Position [Right Arm] Sitting 02 Sat by Pulse Oximetry 98 96 Oxygen Delivery Method Room Air Lab Data Lab results reviewed: Yes I reviewed the patient's lab results. Lab Results 04/27/23 11:30: Urine Color Yellow, Urine Appearance Clear, Urine pH 6.0, Ur Specific Keldron 1.025, Urine Protein Trace, Urine Glucose (UA) Negative, Urine Ketones Negative, Urine Blood 3+, Urine Nitrate Negative, Urine Bilirubin Negative, Urine Urobilinogen 0.2, Ur Leukocyte Esterase Negative, Urine RBC 10-20, Urine WBC Occasional, Ur Squamous Epith Cells Occasional, Urine Bacteria Trace 04/27/23 11:35: WBC 6.9, RBC 4.89, Hgb 16.0, Hct 47.1, MCV 96.4 H, MCH 32.7 H, MCHC 33.9, RDW 13.6, Plt Count 149, MPV 9.3, Neut % (Auto) 64.9, Lymph % (Auto) 25.2, Sharkey % (Auto) 7.4, Eos % (Auto) 2.2, Baso % (Auto) 0.2, Neut # (Auto) 4.5, Lymph # (Auto) 1.7, Sharkey # (Auto) 0.5, Eos # (Auto) 0.2, Baso # (Auto) 0.0, Sodium 143, Potassium 3.6, Chloride 107, Carbon Dioxide 32 H, Anion Gap 7.6, BUN 8 L, Creatinine 0.80, Estimated Creat Clear 159, Estimated GFR 102, Est GFR ( Amer) 124, Glucose 90, Calcium 9.3, Total Bilirubin 0.6, AST 39, ALT 35, Alkaline Phosphatase 82, Total Protein 7.0, Albumin 4.2, Globulin 2.8, Albumin/Globulin Ratio 1.5 04/27/23 11:35 04/27/23 11:35 Orders (Tests/Meds): ED MEDICATIONS Discontinued Medications Generic Name Dose Route Start Last Admin Trade Name Freq PRN Reason Stop Dose Admin Lactated Ringer's 1,000 mls @ 999 mls/hr 04/27/23 11:15 04/27/23 11:49 Lactated Ringer's 1000 Ml Bag IV 04/27/23 12:15 999 mls/hr .Q1H1M YANIRA Administration Ketorolac Tromethamine 15 mg 04/27/23 11:05 04/27/23 11:48 Ketorolac 30mg/Ml Vial IV 04/27/23 11:06 15 mg ONCE ONE Administration Morphine Sulfate 4 mg 04/27/23 11:05 04/27/23 11:48 Morphine 4mg/Ml Syringe IV 04/27/23 11:06 4 mg ONCE ONE Administration Ondansetron HCl 4 mg 04/27/23 11:05 04/27/23 11:48 Ondansetron 4mg/2ml Vial IV 04/27/23 11:06 4 mg ONCE ONE Administration ORDERS Category Date Time Status CT abdomen pelvis wo con Stat Cat Scan 04/27/23 11:05 Taken CBC w/Auto Diff [Complete Blood Count Auto Diff] Stat Lab 04/27/23 11:35 Completed CMP [Comprehensive Metabolic Panel] Stat Lab 04/27/23 11:35 Completed UA [Urinalysis and Microscopic] Stat Lab 04/27/23 11:30 Completed Medical Decision Narrative: 52-year-old gentleman with a history of kidney stones presents today with similar symptoms in the right flank and the right lower abdomen. No significant tenderness I suspect this is not an inflammatory condition however he is obese and this limits exam. Therefore differential includes inflammatory condition such as terminal ileitis, appendicitis, mesenteric adenitis but more likely he has recurrent kidney stone. Will obtain a CT scan without contrast urinalysis blood test give symptomatic control medications and IV fluids and will reassess. CT scan performed to person interpreted which shows a 6 mm right proximal ureteral stone with hydronephrosis and hydroureter. I waited several hours for radiology read and still pending at the moment. I will call the patient back if there is any other notable findings but this is certainly the cause of patient's symptoms. I discussed with him whether or not he wanted to be transferred for urologic intervention as this is unlikely to pass or if he would like to have a trial of passage and to make an outpatient appointment with Dr. Nelson or another urologist. No evidence of sepsis or urinary tract infection superimposed on today's situation. The patient opted to go home with scripts and have a trial of passage he will see Dr. Nelson early next week and call make an appointment today. Patient was discharged in stable condition. Reassessment at 12:58 PM patient is much improved and comfortable and tolerable from a pain control standpoint Critical Care Critical Care Time Critical Care Time: No
[2023-04-27] MEDS: KETOROLAC 30MG/ML VIAL 15 MG IV (11:48)
[2023-04-27] MEDS: ONDANSETRON 4MG/2ML VIAL 4 MG IV (11:48)
[2023-04-27] MEDS: MORPHINE 4MG/ML SYRINGE 4 MG IV (11:48)
[2023-04-27] MEDS: LACTATED RINGERS 1000ML 1,000 ML 999 ML IV (11:49)
[2023-04-27 11:55] LABS: Basophils % 0.2 % (0.1-2.0); Eosinophils # 0.2 K/mm3 (0.0-0.4); Eosinophils % 2.2 % (0.1-12.0); Hematocrit 47.1 % (42.0-52.0); Lymphocytes # 1.7 K/mm3 (0.7-4.5); Lymphocytes % 25.2 % (10-50); Mean Corpuscular HGB Conc 33.9 g/dL (31.8-35.4); Mean Corpuscular Hemoglobin 32.7 pg (27.0-31.2); Mean Corpuscular Volume 96.4 fl (80-94); Mean Platelet Volume 9.3 fl (7.4-10.4); Monocytes # 0.5 K/mm3 (0.1-1.0); Monocytes % 7.4 % (1.7-9.3); Neutrophils # 4.5 K/mm3 (1.8-7.8); Neutrophils % 64.9 % (37.0-80.0); Platelet Count 149 K/mm3 (142-424); Red Blood Count 4.89 M/mm3 (4.60-6.20); Red Cell Distribution Width 13.6 % (11.5-17.5); White Blood Count 6.9 K/mm3 (4.8-10.8)
[2023-04-27 12:00] VITALS: BP 135/78; PULSE 56; RESP 18; O2SAT 96
[2023-04-27 12:06] LABS: Appearance,Urine CLEAR (Clear); Blood, Urine 3+ (Negative); Color,Urine YELLOW (Yellow); Glucose,Urine (UA) Negative (Negative); Ketones,Urine Negative (Negative); Leukocyte Esterase,Urine Negative (Negative); Microscopic, Urine URINE MICROSCOPIC (MICROSCOPIC); Nitrate,Urine Negative (Negative); Protein,Urine TRACE (Negative); Specific Gravity, Urine 1.025 (1.005-1.030); Urobilinogen,Urine 0.2 EU/dl (0.2)
[2023-04-27 12:16] LABS: Alanine Aminotransferase 35 U/L (12-78); Albumin Level 4.2 g/dl (3.5-5.0); Albumin/Globulin Ratio 1.5 (1.1-1.8); Alkaline Phosphatase 82 U/L (38-126); Anion Gap 7.6 mEq/L (5-15); Aspartate Amino Transferase 39 U/L (17-59); Bilirubin,Total 0.6 mg/dl (0.2-1.3); Blood Urea Nitrogen 8 mg/dl (9-20); Calcium 9.3 mg/dl (8.4-10.2); Carbon Dioxide 32 mmol/L (22.0-30.0); Chloride 107 mmol/L (98-107); Creatinine Clearance Estimated 159 mL/min (50-200); Estimated Glomerular Filt Rate 102 ml/min (>60); GFR (African American) 124 ML/MIN (>60); Globulin 2.8 g/dL (1.3-3.2); Glucose 90 mg/dl (74-100); Potassium 3.6 mmoL/L (3.5-5.1); Sodium 143 mmol/L (136-145)
[2023-04-27 12:21] LABS: Bilirubin,Urine Negative (Negative)
[2023-04-27 12:28] LABS: Bacteria,Urine Trace /lpf; Squamous Epithelial Cell,Urine Occasional #/hpf (0-5); WBC,Urine Occasional #/hpf (0-3)
[2023-04-27 12:58] VITALS: BP 128/75; PULSE 56; RESP 16; TEMP 36.8; O2SAT 97
== END 2023-04-27 13:06 | disposition home or self-care (01) ==
PROVIDERS: Emergency Provider Student in an Organized Health Care Education/Training Program; PCP Nurse Practitioner Family
DX: N13.0 Hydronephrosis with ureteropelvic junction obstruction (principal); R10.31 Right lower quadrant pain; M54.59 Other low back pain; E11.9 Type 2 diabetes mellitus without complications; Z79.84 Long term (current) use of oral hypoglycemic drugs; Z79.85 Long-term (current) use of injectable non-insulin antidiabetic drugs
CPT/HCPCS: 74176; 80053; 81001; 85025; 96361; 96374; 96375; 99285; J2405

== ENCOUNTER 2023-05-15 08:12 | Emergency (ER) | payer OTHER, SELFPAY ==
[2023-05-15 08:16] VITALS: BP 165/90; PULSE 78; RESP 18; TEMP 36.7; O2SAT 95; BMI 35.5
--- NOTE | 2023-05-15 08:22 | PC.NURSE ---
ED MD AT BEDSIDE
--- NOTE | 2023-05-15 08:26 | CT_ITS ---
FINAL REPORT TECHNIQUE: Axial images through the abdomen and pelvis were performed without contrast.This study was performed with techniques to keep radiation doses as low as reasonably achievable, (ALARA). Individualized dose reduction techniques using automated exposure control or adjustment of mA and/or kV according to the patient's size were employed. CLINICAL HISTORY: R flank pain, kidney stones COMPARISON: 04/27/2023 FINDINGS: ABDOMEN: Mild scarring is seen at the lung bases. The heart size is normal. Limited images of the liver are unremarkable. The spleen is normal. No adrenal mass is identified. The aorta is normal in caliber. There is no significant free fluid or adenopathy. There are small, bilateral nonobstructing renal stones measuring up to 3 mm. Again seen is mild right hydronephrosis secondary to a 6 mm UPJ stone, unchanged from prior exam. Patient is status post gastric sleeve. I 38 mm cystic mass seen at the umbilicus which may represent sebaceous cyst or urachal cyst. PELVIS: The appendix is normal. There is urinary bladder wall thickening which is likely inflammatory. Calcification is noted in the vas deferens. There are small inguinal hernias containing fat only. There is no significant free fluid or adenopathy. IMPRESSION: No significant change in right hydronephrosis secondary to 6 mm UPJ stone. Bilateral, nonobstructing nephrolithiasis. Mild urinary bladder wall thickening which is likely inflammatory. Reviewed, Interpreted and Dictated by Bret Blount III, MD Transcribed by Nataly Romano Authenticated and [facility]
--- NOTE | 2023-05-15 08:32 | HMH.EDGENADL ---
Discharge Plan Disposition Patient Disposition: Home, Self-Care Condition: Good Prescriptions Prescriptions: New hydrocodone-acetaminophen 5-325 mg tablet 1 tab PO Q8H PRN (Reason: pain) Qty: 6 0RF No Action omeprazole 20 mg capsule,delayed release(DR/EC) 20 mg PO DAILY Patient Comments: TAKE 1 CAPSULE BY MOUTH EVERY DAY Ozempic 0.25 mg or 0.5 mg (2 mg/3 mL) pen injector 0.25 mg SQ WEEKLY Patient Comments: INJECT 0.25MG SUBCUTANEOUS ONCE WEEKLY atorvastatin 20 MG tablet 20 mg PO HS Patient Comments: take 1 tablet by mouth once daily allopurinol 300 MG tablet 300 mg PO DAILY levothyroxine 100 MCG tablet 100 mcg PO DAILY ibuprofen 800 mg tablet 800 mg PO TID PRN (Reason: pain) 7 Days Qty: 20 0RF hydrocodone-acetaminophen 5-325 mg tablet 1 tab PO Q6H PRN (Reason: pain) 3 Days Qty: 12 0RF tamsulosin [Flomax] 0.4 mg capsule 0.4 mg PO DAILY 7 Days Qty: 7 0RF ondansetron 4 mg tablet,disintegrating 4 mg PO Q6H PRN (Reason: nausea and vomiting) 5 Days Qty: 20 0RF sitagliptin phos-metformin 50-1,000 mg tablet, ER multiphase 24 hr 2 tab PO DAILY Hold Instructions: Resume on 11/10/22. Referrals Follow up/Referrals: Santa Dow APRN [Primary Care Provider] - See instructions Johnny Nelson MD [Staff Physician] - See instructions Clinical Impressions Clinical Impression: Kidney stone on right side Instructions Patient Instructions: Kidney Stones -- Adult Discharge ED Provider: Papi Shukla General Adult HPI General Chief complaint: PAIN Stated complaint: kidney stones Time Seen by Provider: 05/15/23 08:21 Mode of Arrival: Ambulatory Source of Information: Patient Limitations: No Limitations Description of Symptoms (Recalled from ER Triage Doc. by RN): pt complains of kidney stone like symptoms. states he was here two weeks ago and has not passed the stone yet History of Present Illness HPI narrative: Patient is a 52-year-old male with history of kidney stones, CAD, diabetes who presents to the ED due to right flank pain. Patient was seen in the emergency department 2.5 weeks ago with right flank pain and was diagnosed with 6 mm proximal obstructing ureteral stone. He was discharged home and followed up with outpatient provider. States last night he began having right-sided back pain and nausea. Denies any vomiting. Reports today his pain has persisted and wraps around his right flank. States his urine has been darker since yesterday as well. Denies any dysuria, fever or chills. States he has history of uric acid stones and has required surgical intervention once in the past. Reports he takes allopurinol daily and has also been on sodium bicarbonate for his current stone. Related Data Home Medications Medication Instructions Recorded Confirmed allopurinol 300 mg tablet 300 mg PO DAILY GOUT 01/12/19 11/22/22 atorvastatin 20 mg tablet 20 mg PO HS Cholesterol 01/12/19 11/22/22 levothyroxine 100 mcg tablet 100 mcg PO DAILY THYROID 04/24/19 11/22/22 sitagliptin phos 50 mg-metformin 2 tab PO DAILY Diabetes 10/11/22 11/22/22 ER 1,000 mg tablet,extend rel 24h mp omeprazole 20 mg capsule,delayed 20 mg PO DAILY 10/25/22 11/22/22 release semaglutide 0.25 mg or 0.5 mg (2 0.25 mg SQ WEEKLY 10/25/22 11/22/22 mg/3 mL) subcutaneous pen injector (Ozempic) Previous Rx's Medication Instructions Recorded hydrocodone 5 mg-acetaminophen 325 1 tab PO Q6H PRN pain 3 days #12 04/27/23 mg tablet tabs ibuprofen 800 mg tablet 800 mg PO TID PRN pain 7 days #20 04/27/23 tabs ondansetron 4 mg disintegrating 4 mg PO Q6H PRN nausea and 04/27/23 tablet vomiting 5 days #20 tabs tamsulosin 0.4 mg capsule (Flomax) 0.4 mg PO DAILY 7 days #7 caps 04/27/23 hydrocodone 5 mg-acetaminophen 325 1 tab PO Q8H PRN pain #6 tabs 05/15/23 mg tablet Allergies Allergy/AdvReac Type Severity Reaction Status Date / Time amoxicillin Allergy Unknown Verified 11/22/22 11:25 allergy reaction [facility] Disclaimer: The information contained in this section may have been updated after the patient was seen, as this information can be updated by other users. Medical History Abnormal electrocardiogram [ECG] [EKG] Abnormal stress test Coronary artery calcification seen on CAT scan Diabetes Encounter for pre-operative cardiovascular clearance Social History Smoking Status: Never smoker alcohol intake: never substance use type: denies use current occupational status: employed Travel in the last 8 weeks: None household members: spouse housing: house current occupation: [employer] current occupational exposures/hazards: No caffeine: Yes ROS Obtained: Yes All systems reviewed & no additional complaints except as documented Gastrointestinal Gastrointestingal: Reports abdominal pain and nausea Genitourinary Male Genitourinary: Reports flank pain Physical Exam General General appearance: alert and in no apparent distress Head Head exam: atraumatic, normocephalic and normal inspection Eye Eye exam: Present normal appearance, PERRL and EOMI ENT ENT exam: Present normal exam, normal oropharynx, mucous membranes moist, TM's normal bilaterally and normal external ear exam Neck Neck exam: Present normal inspection, full ROM and trachea midline; Absent meningismus or lymphadenopathy Chest Chest inspection: Present normal inspection and symmetric chest wall rise; Absent tenderness Respiratory Respiratory exam: Present normal lung sounds bilaterally; Absent respiratory distress Cardiovascular Cardiovascular exam: Present regular rate and normal rhythm; Absent JVD Abdominal Exam Abdominal exam: Present soft, tenderness and normal bowel sounds; Absent distention or guarding Abdominal tenderness: Present RLQ Comment: TTP right CVA, flank, lower quadrant Extremities Exam Extremities exam: Present normal inspection, full ROM and normal capillary refill; Absent calf tenderness Back Exam Back exam: Present normal inspection and CVA tenderness (R); Absent tenderness Neurological Exam Neurological exam: Present alert and oriented X3 Psychiatric Psychiatric exam: Present normal affect and normal mood Skin Skin exam: Present warm, dry, intact and normal color Lymphatic Lymphatic Findings: no adenopathy Medical Decision Making Medical Records Medical records reviewed: Yes I reviewed the patient's medical records. Trey Inquiry Pt receiving controlled substance: No Trey was queried for this patient: No Vital Signs: 05/15/23 08:16 05/15/23 09:01 05/15/23 09:30 Temperature 98.1 F Temperature Source Oral Pulse Rate 57 L 58 L Pulse Rate [Right] 78 Respiratory Rate 18 20 Blood Pressure 140/78 129/75 Blood Pressure [Right Arm] 165/90 H Blood Pressure Mean 102 Blood Pressure Mean [Right Arm] 115 02 Sat by Pulse Oximetry 95 96 95 Oxygen Delivery Method Room Air Room Air 05/15/23 10:00 05/15/23 10:39 Temperature 98.4 F Temperature Source Oral Pulse Rate 62 59 L Pulse Rate [Right] Respiratory Rate 20 20 Blood Pressure 129/76 141/84 H Blood Pressure [Right Arm] Blood Pressure Mean 101 Blood Pressure Mean [Right Arm] 02 Sat by Pulse Oximetry 97 Oxygen Delivery Method Room Air Lab Data Lab results reviewed: Yes I reviewed the patient's lab results. Lab Results 05/15/23 08:18: Urine Color Yellow, Urine Appearance Clear, Urine pH 6.5, Ur Specific [place] 1.020, Urine Protein Negative, Urine Glucose (UA) Negative, Urine Ketones 1+, Urine Blood Trace-i, Urine Nitrate Negative, Urine Bilirubin Negative, Urine Urobilinogen 0.2, Ur Leukocyte Esterase Negative, Urine RBC 5-10, Urine WBC Occasional, Ur Squamous Epith Cells Occasional, Urine Bacteria Trace 05/15/23 08:20: WBC 7.0, RBC 4.92, Hgb 15.7, Hct 48.8, MCV 99.3 H, MCH 32.0 H, MCHC 32.2, RDW 13.4, Plt Count 152, MPV 9.4, Neut % (Auto) 67.2, Lymph % (Auto) 21.6, Dickens % (Auto) 7.8, Eos % (Auto) 2.3, Baso % (Auto) 1.0, Neut # (Auto) 4.7, Lymph # (Auto) 1.5, Dickens # (Auto) 0.6, Eos # (Auto) 0.2, Baso # (Auto) 0.1, Sodium 142, Potassium 4.0, Chloride 103, Carbon Dioxide 34 H, Anion Gap 9.0, BUN 12, Creatinine 1.00, Estimated Creat Clear 125, Estimated GFR 79, Est GFR ( Amer) 96, Glucose 91, Calcium 9.4, Total Bilirubin 0.8, AST 44, ALT 34, Alkaline Phosphatase 87, Total Protein 6.8, Albumin 4.1, Globulin 2.7, Albumin/Globulin Ratio 1.5 05/15/23 08:20 05/15/23 08:20 Orders (Tests/Meds): ED MEDICATIONS Discontinued Medications Generic Name Dose Route Start Last Admin Trade Name Freq PRN Reason Stop Dose Admin Lactated Ringer's 1,000 mls @ 999 mls/hr 05/15/23 08:26 05/15/23 08:42 Lactated Ringer's 1000 Ml Bag IV 05/15/23 09:26 999 mls/hr .Q1H1M ONE Administration Ketorolac Tromethamine 15 mg 05/15/23 08:26 05/15/23 08:42 Ketorolac 30mg/Ml Vial IV 05/15/23 08:27 15 mg ONCE ONE Administration Ondansetron HCl 4 mg 05/15/23 08:26 05/15/23 08:42 Ondansetron 4mg/2ml Vial IV 05/15/23 08:27 4 mg ONCE ONE Administration ORDERS Category Date Time Status CT abdomen pelvis wo con Stat Cat Scan 05/15/23 08:26 Completed CBC w/Auto Diff [Complete Blood Count Auto Diff] Stat Lab 05/15/23 08:20 Completed CMP [Comprehensive Metabolic Panel] Stat Lab 05/15/23 08:20 Completed Urinalysis and Microscopic Stat Lab 05/15/23 08:[address] Data ED CT Reviewed: Yes I have reviewed the patient's CT results US Data ED US Reviewed: Yes I have reviewed the patient's US results Medical Decision Narrative: In summary, patient is a 52-year-old male with history of multiple kidney stones, most recently diagnosed with right 6 mm proximal ureteral stone 2.5 weeks ago, evaluated in the emergency department today due to right flank pain. On arrival, patient is hypertensive but hemodynamically stable with otherwise normal vital signs. On examination, patient has tenderness to palpation of right CVA, flank and lower quadrant. Differential diagnosis includes but is not limited to obstructing stone, urinary tract infection, pyelonephritis. Workup initiated including CBC, CMP, urinalysis, CT abdomen/pelvis without contrast. Labs independently interpreted by me and significant for RBCs and blood in urine with no signs concerning for infection, labs otherwise unremarkable. Imaging independently interpreted by me and significant for unchanged 6 mm right proximal ureteral stone with mild hydronephrosis. On reevaluation, patient states he feels well and his pain/nausea are controlled. Overall CT is unchanged from prior and patient's labs/urine are reassuring. Given his well-appearance and reassuring workup, and shared decision making with patient he is comfortable with discharge and follow-up with his urologist outpatient. Patient states he had planned to follow-up with his urologist within the next 2 days anyway and will contact his office today.He is appropriate for discharge at this time. Patient counseled on home care, given strict return precautions and agreeable to plan. 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 I considered the utility of treatment with prescription for antiemetics, but decided against this because patient states he has sufficient supply at home. I considered admitting the patient symptom control, and in shared decision-making with patient, decided to proceed with discharge and outpatient management. Procedures Risk/Benefits of Procedure(s) Were Explained: Yes Critical Care Critical Care Time Critical Care Time: No
[2023-05-15 08:37] LABS: Microscopic, Urine URINE MICROSCOPIC (MICROSCOPIC)
[2023-05-15 08:39] LABS: Appearance,Urine CLEAR (Clear); Bilirubin,Urine Negative (Negative); Blood, Urine TRACE-I (Negative); Color,Urine YELLOW (Yellow); Glucose,Urine (UA) Negative (Negative); Ketones,Urine 1+ (Negative); Leukocyte Esterase,Urine Negative (Negative); Nitrate,Urine Negative (Negative); PH,Urine 6.5 (5.0-8.5); Protein,Urine Negative (Negative); Urobilinogen,Urine 0.2 EU/dl (0.2)
[2023-05-15 08:39] LABS: Basophils # 0.1 K/mm3 (0-0.2); Eosinophils # 0.2 K/mm3 (0.0-0.4); Eosinophils % 2.3 % (0.1-12.0); Hematocrit 48.8 % (42.0-52.0); Hemoglobin 15.7 g/dL (14.1-18.0); Lymphocytes # 1.5 K/mm3 (0.7-4.5); Lymphocytes % 21.6 % (10-50); Mean Corpuscular HGB Conc 32.2 g/dL (31.8-35.4); Mean Corpuscular Volume 99.3 fl (80-94); Mean Platelet Volume 9.4 fl (7.4-10.4); Monocytes # 0.6 K/mm3 (0.1-1.0); Monocytes % 7.8 % (1.7-9.3); Neutrophils # 4.7 K/mm3 (1.8-7.8); Neutrophils % 67.2 % (37.0-80.0); Platelet Count 152 K/mm3 (142-424); Red Blood Count 4.92 M/mm3 (4.60-6.20); Red Cell Distribution Width 13.4 % (11.5-17.5)
[2023-05-15] MEDS: KETOROLAC 30MG/ML VIAL 15 MG IV (08:42)
[2023-05-15] MEDS: ONDANSETRON 4MG/2ML VIAL 4 MG IV (08:42)
[2023-05-15] MEDS: LACTATED RINGERS 1000ML 1,000 ML 999 ML IV (08:42)
[2023-05-15 08:43] LABS: Alanine Aminotransferase 34 U/L (12-78); Albumin Level 4.1 g/dl (3.5-5.0); Albumin/Globulin Ratio 1.5 (1.1-1.8); Alkaline Phosphatase 87 U/L (38-126); Aspartate Amino Transferase 44 U/L (17-59); Bilirubin,Total 0.8 mg/dl (0.2-1.3); Blood Urea Nitrogen 12 mg/dl (9-20); Calcium 9.4 mg/dl (8.4-10.2); Carbon Dioxide 34 mmol/L (22.0-30.0); Chloride 103 mmol/L (98-107); Creatinine Clearance Estimated 125 mL/min (50-200); Estimated Glomerular Filt Rate 79 ml/min (>60); GFR (African American) 96 ML/MIN (>60); Globulin 2.7 g/dL (1.3-3.2); Glucose 91 mg/dl (74-100); Sodium 142 mmol/L (136-145); Total Protein,Serum 6.8 g/dl (6.3-8.2)
--- NOTE | 2023-05-15 08:46 | PC.NURSE ---
PT TO CT
--- NOTE | 2023-05-15 08:53 | PC.NURSE ---
PT RETURNED FROM CT
[2023-05-15 08:54] LABS: Bacteria,Urine Trace /lpf; Squamous Epithelial Cell,Urine Occasional #/hpf (0-5); WBC,Urine Occasional #/hpf (0-3)
[2023-05-15 09:01] VITALS: BP 140/78; PULSE 57; O2SAT 96
[2023-05-15 09:30] VITALS: BP 129/75; PULSE 58; RESP 20; O2SAT 95
--- NOTE | 2023-05-15 09:48 | PC.NURSE ---
ED MD AT BEDSIDE TO REEVALUATE PT
[2023-05-15 10:00] VITALS: BP 129/76; PULSE 62; RESP 20; O2SAT 97
--- NOTE | 2023-05-15 10:19 | PC.NURSE ---
Rounded on pt. No needs voiced at this time. Call light within reach.
[2023-05-15 10:39] VITALS: BP 141/84; PULSE 59; RESP 20; TEMP 36.9; O2SAT 95
--- NOTE | 2023-05-15 10:43 | PC.NURSE ---
Rounded on pt to see if they had any needs. pt had no needs at this time as they were working on the discharge.
== END 2023-05-15 10:47 | disposition home or self-care (01) ==
PROVIDERS: Emergency Provider Student in an Organized Health Care Education/Training Program; PCP Nurse Practitioner Family
DX: N13.0 Hydronephrosis with ureteropelvic junction obstruction (principal); R10.31 Right lower quadrant pain; M54.59 Other low back pain; R11.0 Nausea; E11.9 Type 2 diabetes mellitus without complications; I11.9 Hypertensive heart disease without heart failure; I25.10 Atherosclerotic heart disease of native coronary artery without angina pectoris; Z79.84 Long term (current) use of oral hypoglycemic drugs; Z79.85 Long-term (current) use of injectable non-insulin antidiabetic drugs
CPT/HCPCS: 74176; 80053; 81001; 85025; 96361; 96374; 96375; 99284; J2405